=== PATIENT | male | born 1995 | race African-American/Black ===

== ENCOUNTER 2018-12-14 10:03 | Emergency (ER) | payer OTHER ==
[2018-12-14 10:36] VITALS: BP 165/102
--- NOTE | 2018-12-14 10:49 | ER Document Report ---
HPI - HPI Patient complains to provider of: Muscle pain Time Seen by Provider: 12/14/18 10:44 Onset: This morning Onset/Duration: Gradual Quality of pain: Achy, Other Severity: Mild Pain Level: 1 Associated Symptoms: Body/muscle aches. denies: Chest pain, Chills, Nonproductive cough, Productive cough, Diarrhea, Drooling, Earache, Fever, Headache, Hoarseness, Hurts to breath, Nausea, Vomiting, Rhinnorhea, Sinus pain/drainage, Shortness of breath, Sore throat, Sweating Exacerbated by: Movement Relieved by: Denies Similar symptoms previously: Yes Recently seen / treated by doctor: No - ROS ROS below otherwise negative: Yes - CONSTITUTIONAL Constitutional: DENIES: Fever, Chills - EENT EENT: DENIES: Sore Throat, Ear Pain, Nasal Drainage-Clear, Nasal Drainage- Purulent, Congestion, Eye problems - NEURO Neurology: DENIES: Headache, Weakness, Vision blurred, Dizzinesss / Vertigo - CARDIOVASCULAR Cardiovascular: DENIES: Chest pain - RESPIRATORY Respiratory: DENIES: Trouble Breathing, Coughing - GASTROINTESTINAL Gastrointestinal: DENIES: Abdominal Pain, Nausea, Patient vomiting, Diarrhea, Constipation, Black / Bloody Stools - URINARY Urinary: DENIES: Dysuria, Urgency, Frequency - REPRODUCTIVE Reproductive: DENIES: :, Postmenopausal, Abnormal bleeding / discharge - MUSCULOSKELETAL Musculoskeletal: DENIES: Extremity pain - Body aches muscle pain, Back Pain - Body aches muscle pain, Neck Pain, Swelling - DERM Skin Color: Normal Skin Problems: None Past Medical History - General Information source: Patient - Social History Smoking Status: Current Every Day Smoker Cigarette use (# per day): Yes - Half pack a day Chew tobacco use (# tins/day): No - 4 minutes Smoking Education Provided: Yes Frequency of alcohol use: Social Drug Abuse: None 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 Family History: Reviewed & Not Pertinent Patient has suicidal ideation: No Patient has homicidal ideation: No - Past Medical History Cardiac Medical History: Reports: Hx Hypertension EENT Medical History: Reports: None Neurological Medical History: Reports: None Endocrine Medical History: Reports: None Renal/ Medical History: Reports: None Malignancy Medical History: Reports None GI Medical History: Reports: None Musculoskeletal Medical History: Reports None Skin Medical History: Reports None Psychiatric Medical History: Reports: None Traumatic Medical History: Reports: None Infectious Medical History: Reports: None Surgical Hx: Negative Past Surgical History: Reports: None - Immunizations Immunizations up to date: Yes Hx Diphtheria, Pertussis, Tetanus Vaccination: Yes Vertical Provider Document - CONSTITUTIONAL Agree With Documented VS: Yes Exam Limitations: No Limitations General Appearance: WD/WN, No Apparent Distress - INFECTION CONTROL TRAVEL OUTSIDE OF THE [place] IN LAST 30 DAYS: No - HEENT HEENT: Atraumatic, Normal ENT Exam, Normocephalic, PERRLA - NECK Neck: Normal Inspection, Supple - RESPIRATORY Respiratory: Breath Sounds Normal, No Respiratory Distress, Chest Non-Tender - CARDIOVASCULAR Cardiovascular: Regular Rate, Regular Rhythm, No Murmur Notes: High blood pressure patient was instructed to follow-up with the BAS for his blood pressure - GI/ABDOMEN Gastrointestinal: Abdomen Soft, Abdomen Non-Tender, Abdomen Tender - BACK Back: Normal Inspection Notes: No tenderness to palpation or to movement - MUSCULOSKELETAL/EXTREMETIES Musculoskeletal/Extremeties: MAEW, FROM, Non-Tender - NEURO Level of Consciousness: Awake, Alert, Appropriate Motor/Sensory: No Motor Deficit, No Sensory Deficit, No Pronator Drift Deep Tendon Reflexes: 2+ - DERM Integumentary: Warm, Dry, No Rash Course - Re-evaluation Re-evalutation: 12/14/18 10:52 Patient states he was having body aches muscle spasms no tenderness to palpation to his arms legs back abdomen lungs clear to auscultation states he was not really having any symptoms at this time denied any dizziness nausea vomiting headache or any pain at this time. States that the pain returns he will follow- up with his BAS. - Vital Signs Vital signs: Temp Pulse Resp BP Pulse Ox 97.7 F 94 20 165/102 H 94 12/14/18 10:34 12/14/18 10:34 12/14/18 10:34 12/14/18 10:34 12/14/18 10:34 Discharge - Discharge Clinical Impression: Muscle cramps, Generalized body aches Condition: Stable Disposition: HOME, SELF-CARE Additional Instructions: You complaint of muscle aches body aches muscle spasms but you deny any nausea vomiting shortness of breath dizziness lightheadedness or headache at this time. He states she just drove 10 hours and you were concerned because of the body aches and joint pain. You state when he first got here you were having some pain in your back but that is not there now. 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 Myalagia (Muscle Pain) Myalgia is pain in the muscles. We use the word myalgia to describe muscle pain where there's no history of injury, no known muscle disease, and the muscles are normal to examination. Myalgias can be a symptom of an acute illness, such as influenza, hepatitis, or any viral illness, especially with fever. Sometimes the muscle pain comes before any other symptoms. Myalgia can also be an early symptom of inflammatory muscle disease, such as lupus. If myalgia is accompanied by an acute illness that explains the muscle pain, then no further testing needs to be done. When there's no clear reason for the pain, tests may be done to see if there's an inflammatory or other disease of the muscles. The usual treatment for myalgias is anti-inflammatory medication, such as ibuprofen. Muscle aches may be soothed with a heating pad or hot compress. If muscles remain painful for more than a few days, you'll need testing and followup. Return if a muscle becomes swollen, red, or severely painful. Acetaminophen Acetaminophen may be taken for pain relief or fever control. It's much safer than aspirin, offering a wider range of "safe" dosages. It is safe during . Some brand names are Tylenol, Panadol, Datril, Anacin 3, Tempra, and Liquiprin. Acetaminophen can be repeated every four hours. The following are maximum recommended dosages: WEIGHT Dose Drops Elixir Chewable(80mg) (LBS.) drprs=droppers tsp=teaspoon 6 40 mg .4 ml (1/2) 6-11 80 mg .8 ml (full) 1/2 tsp 1 tab 12-16 120 mg 1 1/2 drprs 3/4 tsp 1 1/2 tabs 17-23 160 mg 2 drprs 1 tsp 2 tabs 24-30 240 mg 3 drprs 1 1/2 tsp 3 tabs 30-35 320 mg 2 tsp 4 tabs 36-41 360 mg 2 1/4 tsp 4 1/2 tabs 42-47 400 mg 2 1/2 tsp 5 tabs 48-53 480 mg 3 tsp 6 tabs 54-59 520 mg 3 1/4 tsp 6 1/2 tabs 60-64 560 mg 3 1/2 tsp 7 tabs 65-70 600 mg 3 3/4 tsp 7 1/2 tabs 71-76 640 mg 4 tsp 8 tabs 77-82 720 mg 4 1/2 tsp 9 tabs 83-88 800 mg 5 tsp 10 tabs >89 pounds or adults 650 mg to 900 mg Acetaminophen can be repeated every four hours. Maximum daily dose not to exceed 4000 mg. These maximum recommended dosages are slightly higher than the dosages written on the product container, but these dosages are very safe and well below the toxic dosage for acetaminophen. Ibuprofen Ibuprofen is an excellent, safe drug for pain control. In addition, it has potent antiinflammatory effects which are beneficial, especially in the treatment of injuries, arthritis, or tendonitis. It's best to take ibuprofen with food. Persons with ulcer disease or allergy to aspirin should notify their physician of this before taking ibuprofen. Take the medication exactly as prescribed. Don't take additional doses unless instructed to do so by your doctor. If you develop wheezing, shortness of breath, hives, faintness, stomach pain, vomiting, or dark black stools, return for re-evaluation at once. Warm Packs After approximately two days, apply gentle heat (such as a heating pad or hot water bottle) for about 20 to 30 minutes about every two hours -- at least four times daily. Warmth and elevation will help you make a more rapid recovery, and will ease the pain considerably. Do not use HOT heat, and never apply heat for longer than 30 minutes. The continuous heat can invisibly damage skin and muscles -- even when no burn is seen on the surface. Damaged muscles can make you MORE sore. Ice Packs Apply ice packs frequently against the painful area. Many different schedules are recommended, such as "20 minutes on, 20 minutes off" or "one hour ice, two hours rest." If you need to work, you may need to go longer between ice treatments. You should plan to have the area ice packed AT LEAST one fourth of the time. The ice should be applied over the wrap, tape, or splint, or over a layer of cloth -- not directly against the skin. Some ice bags have a built-in cloth and can be put directly on the skin. FOLLOW-UP CARE: If you have been referred to a physician for follow-up care, call the physicians office for an appointment as you were instructed or within the next two days. If you experience worsening or a significant change in your symptoms, notify the physician immediately or return to the Emergency Department at any time for re-evaluation. Forms: Elevated Blood Pressure, Smoking Cessation Education
== END 2018-12-14 10:50 | disposition home or self-care (01) ==
LOC: ER 10:03
DX: M62.838 Other muscle spasm (principal); M54.2 Cervicalgia; F17.210 Nicotine dependence, cigarettes, uncomplicated; I10 Essential (primary) hypertension
CPT/HCPCS: 99283; 99406

== ENCOUNTER 2019-01-25 06:38 | Observation (INO) | payer OTHER ==
[2019-01-25] MEDS ORDERED: ONDANSETRON HCL INJ/PF 4 MG/2 ML SDV IV ONE ×2 (08:00→11:31)
[2019-01-25] MEDS ORDERED: NORMAL SALINE 1000 ML 1,000 ML IV ONE (08:00)
[2019-01-25] MEDS ORDERED: CLINDAMYCIN 600 MG/D5W RTU 600 MG/50 ML RTUPB IV ONE (08:00)
[2019-01-25] MEDS ORDERED: MORPHINE SULFATE 10 MG/ML INJ IV ONE ×5 (08:00→17:06)
--- NOTE | 2019-01-25 08:09 | ER Document Report ---
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 He reports that Friday 8 days ago, he either got a small cut or splinter in the volar base of the thumb. It started to become a little swollen and later in the week, he saw his BAS manufacturing plant controller on or Friday and was told to elevate the hand over the weekend. They were going back and forth over whether or not there was an infection, he was not put on any medication. He woke up this morning with the base of the thumb and the thenar eminence of the palm grossly swollen, red, exquisitely painful. He states pain is going up the arm. He has tenderness in the axilla. TRAVEL OUTSIDE OF THE [place] IN LAST 30 DAYS: No - Related Data Allergies/Adverse Reactions: amoxicillin Allergy (Verified 12/14/18 10:05) Past Medical History - General Information source: Patient - Social History Smoking Status: Current Every Day Smoker Cigarette use (# per day): Yes Chew tobacco use (# tins/day): No Smoking Education Provided: No Frequency of alcohol use: Occasional Drug Abuse: None Occupation: [employer] Lives with: Other - [employer] Family History: Reviewed & Not Pertinent Patient has suicidal ideation: No Patient has homicidal ideation: No - Past Medical History Cardiac Medical History: Reports: Hx Hypertension Surgical Hx: Negative - Immunizations Immunizations up to date: Yes Hx Diphtheria, Pertussis, Tetanus Vaccination: Yes Review of Systems - Review of Systems Constitutional: No symptoms reported EENT: No symptoms reported Cardiovascular: No symptoms reported Respiratory: No symptoms reported Gastrointestinal: No symptoms reported Musculoskeletal: See HPI Skin: No symptoms reported Hematologic/Lymphatic: No symptoms reported Neurological/Psychological: No symptoms reported Physical Exam - Vital signs Vitals: Temp Pulse Resp BP Pulse Ox 98.2 F 105 H 16 133/79 H 97 01/25/19 06:44 01/25/19 06:44 01/25/19 06:44 01/25/19 06:44 01/25/19 06:44 Interpretation: Normal - General General appearance: Appears well, Alert In distress: Mild - HEENT Head: Normocephalic, Atraumatic Eyes: Normal Pupils: PERRL - Respiratory Respiratory status: No respiratory distress Breath sounds: Normal - Cardiovascular Rhythm: Regular - Abdominal Inspection: Normal - Back Back: Normal - Extremities General upper extremity: Other - Left palmar base of the thumb has a transverse laceration with bulging purulent appearing wound. Surrounding area is grossly swollen erythemic and tender. The swelling, and erythema extends well into the thenar aspect of the palm. There is some tenderness following lymphatics up the arm, there are no epitrochlear nodes. There is tenderness to palpate in the axilla, although no lymph nodes were palpated. General lower extremity: Normal inspection - Neurological Neuro grossly intact: Yes - Psychological Associated symptoms: Normal affect, Normal mood Course - Re-evaluation Re-evalutation: 01/25/19 13:27 PROCEDURE: The left palm was prepped with Shur-Clens. The base of the thumb was injected with 5 mL 1% lidocaine and a digital block pattern. The blister area over the base of the thumb was cut away. Pus within the blistered area was cultured. After the blistered skin was removed exposing viable dermis, a small opening with white pus was located. This opening was stretched with a mosquito clamp, and gentle pressure was put on the thenar eminence. A large amount of pus came out through that opening. The opening was then explored with the mosquito clamp and it traveled proximal and medially about 2 cm into the thenar region. This did allow additional pus to come out of the wound. 1/4 inch piece of iodoform gauze was placed down through the opening extending into the thenar eminence and the wound was bandaged in a sterile fashion. - Vital Signs Vital signs: Temp Pulse Resp BP Pulse Ox 98.2 F 105 H 16 133/79 H 97 01/25/19 06:44 01/25/19 06:44 01/25/19 06:44 01/25/19 06:44 01/25/19 06:44 - Laboratory Result Diagrams: 01/25/19 08:35 01/25/19 08:35 Laboratory results interpreted by me: 01/25/19 01/25/19 08:16 08:35 WBC 12.9 H Absolute Neutrophils 9.8 H Urine Ketones TRACE H - Diagnostic Test Radiology reviewed: Reports reviewed - MRI of the hand shows cellulitis extending from the base of the thumb into the thenar region without fluid collection. - Consults Dr. Valverde Time consulted: 11:45 Consulted provider: will see as inpatient Discharge - Discharge Clinical Impression: Abscess of palm Condition: Stable Disposition: ADMITTED INPATIENT Admitting Provider: Dr. Valverde Unit Admitted: Surgical Floor
[2019-01-25 08:31] LABS: APPEARANCE,URINE CLEAR; BILIRUBIN,URINE NEGATIVE (NEGATIVE); COLOR,URINE YELLOW; GLUCOSE, URINE NEGATIVE (NEGATIVE); KETONES,URINE TRACE mg/dL (NEGATIVE); LEUKOCYTE ESTERASE,URINE NEGATIVE (NEGATIVE); NITRITE,URINE NEGATIVE (NEGATIVE); PROTEIN,URINE NEGATIVE (NEGATIVE); URINE SPECIFIC GRAVITY 1.018; UROBILINOGEN,URINE NEGATIVE mg/dL (<2.0)
[2019-01-25 09:02] LABS: ABSOLUTE EOSINOPHILS # (AUTO) 0.1 10^3/uL (0.0-0.6); ABSOLUTE LYMPHOCYTES (AUTO) 2.1 10^3/uL (0.5-4.7); ABSOLUTE MONOCYTES (AUTO) 0.8 10^3/uL (0.1-1.4); ABSOLUTE NEUT (AUTO) 9.8 10^3/uL (1.7-8.2); BASOPHILS % (AUTO) 0.4 % (0-2); EOSINOPHILS % (AUTO) 0.6 % (0-6); HEMATOCRIT 46.8 % (37.9-51.0); HEMOGLOBIN 15.8 g/dL (13.5-17.0); LYMPHOCYTES % (AUTO) 16.3 % (13-45); MEAN CORPUSCULAR HEMOGLOBIN 29.3 pg (27.0-33.4); MEAN CORPUSCULAR HGB CONC 33.8 g/dL (32.0-36.0); MEAN CORPUSCULAR VOLUME 87 fl (80-97); MONOCYTES % (AUTO) 6.6 % (3-13); PLATELET COUNT 231 10^3/uL (150-450); RED BLOOD COUNT 5.39 10^6/uL (4.35-5.55); RED CELL DISTRIBUTION WIDTH 13.1 % (11.5-14.0); SEGMENTED NEUTROPHILS % (AUTO) 76.1 % (42-78); TOTAL CELLS COUNTED % (AUTO) 100 %; WHITE BLOOD COUNT 12.9 10^3/uL (4.0-10.5)
[2019-01-25 09:24] LABS: ALBUMIN 4.7 g/dL (3.5-5.0); ALKALINE PHOSPHATASE 70 U/L (38-126); ANION GAP 11 (5-19); ASPARTATE AMINO TRANSFERASE 29 U/L (17-59); BILIRUBIN,DIRECT 0.4 mg/dL (0.0-0.4); BILIRUBIN,TOTAL 0.6 mg/dL (0.2-1.3); BLOOD UREA NITROGEN 11 mg/dL (7-20); CALCIUM 9.6 mg/dL (8.4-10.2); CARBON DIOXIDE 26 mmol/L (22-30); CHLORIDE 105 mmol/L (98-107); GLUCOSE 91 mg/dL (75-110); POTASSIUM 4.5 mmol/L (3.6-5.0); TOTAL PROTEIN 7.7 g/dL (6.3-8.2)
[2019-01-25] MEDS ORDERED: KETOROLAC TROMETHAMINE INJ/PF 30 MG/1 ML SDV IV ONE (09:45)
--- NOTE | 2019-01-25 11:14 | RADIOLOGY REPORT (SQ) ---
EXAM DESCRIPTION: MRI LT UPPER EXTREMITY COMBO COMPLETED DATE/TIME: 01/25/2019 10:46 am REASON FOR STUDY: Abscess base of thumb extending in the palm COMPARISON: None. TECHNIQUE: Multiplanar imaging of the left thumb to include T1-weighted, postcontrast T1-weighted, a nd T2-weighted images. CONTRAST TYPE AND DOSE: 15 mL Dotarem. RENAL FUNCTION: Not indicated. ACR Type II contrast agent associated with few, if any, unconfounded cases of NSF LIMITATIONS: None. FINDINGS: BONE MARROW: No marrow signal alteration. Specifically no marrow replacement or marrow ed fortunato. No evidence for osteomyelitis. No cortical break through. SOFT TISSUES: Inflammatory changes thumb base extending distally. No organized fluid collection. No significant extension proximally. OTHER: No other significant finding. IMPRESSION: Cellulitis extending distally from the base of the thumb. No significant extension prox imally. TECHNICAL DOCUMENTATION: JOB ID: [id number] [employer]- All Rights Reserved Reading location - IP/workstation name: [email or web address]
[2019-01-25] MEDS ORDERED: LIDOCAINE 1% INJ-PF (10 MG/ML) 30 ML SDV INJ ONE (11:49)
[2019-01-25] MEDS: VANCOMYCIN HCL 1,500 MG in DEXTROSE 5%-WATER 250 ML IV SCH (20:15)
[2019-01-25] MEDS: OXYCODONE HCL IR 5 MG TABLET PO PRN (20:15)
[2019-01-25] MEDS: CEFTRIAXONE 2 GM/D5W RTU 2 GM/50 ML RTUPB IV SCH (21:59)
[2019-01-26] MEDS: VANCOMYCIN HCL 1,500 MG in DEXTROSE 5%-WATER 250 ML IV SCH ×3 (04:13→20:15)
[2019-01-26] MEDS: OXYCODONE HCL IR 5 MG TABLET PO PRN ×3 (04:13→21:02)
[2019-01-26] MEDS ORDERED: RINGERS SOLUTION,LACTATED 1,000 ML IV PRN ×2 (07:34→17:39)
--- NOTE | 2019-01-26 07:34 | PDOC H&P ---
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 Patient underwent an MRI scan in the emergency room demonstrating thumb abscess. The patient underwent a limited I&D by Dr. Paul Ramirez in the emergency room where he was able to express purulence from the thenar eminence. He is admitted to orthopedic service for further management of a left thenar abscess. Past Medical History Cardiac Medical History: Reports: Hypertension Past Surgical History Past Surgical History: Reports: None Social History Information Source: Patient, ON LICENSE OF [facility] Records Lives with: Other - [employer] Smoking Status: Former Smoker Frequency of Alcohol Use: Occasional Hx Recreational Drug Use: No Drugs: None Hx Prescription Drug Abuse: No - Advance Directive Resuscitation Status: Full Code Family History Family History: Reviewed & Not Pertinent Parental Family History Reviewed: No Children Family History Reviewed: No Sibling(s) Family History Reviewed.: No Medication/Allergy Home Medications: No Home Medications 01/25/19 Allergies/Adverse Reactions: amoxicillin Allergy (Unknown, Verified 01/25/19 19:22) Hives Review of Systems All systems: as per PMH Physical Exam Vital Signs: Temp Pulse Resp BP Pulse Ox 36.3 C 83 17 149/93 H 100 01/25/19 23:27 01/25/19 23:27 01/25/19 19:56 01/25/19 23:27 01/25/19 23:27 Intake & Output 01/25/19 01/26/19 01/27/19 06:59 06:59 06:59 Intake Total 1350 Output Total 1040 Balance 310 Weight 89 kg 89.8 kg Physical Exam: Patient is a relatively muscular young white male in minor distress. General appearance: PRESENT: mild distress, well-developed, well-nourished Head exam: PRESENT: normocephalic Respiratory exam: PRESENT: unlabored Cardiovascular exam: PRESENT: RRR Vascular exam: PRESENT: normal capillary refill GI/Abdominal exam: PRESENT: soft Rectal exam: PRESENT: deferred Extremities exam: PRESENT: other - Dressing is removed from the left thumb region. There is packing in the webspace along the volar and ulnar aspect of the MCP crease. There is rising lymphangitis along the volar forearm and into the antecubital fossa. His epitrochlear nodes as well as potentially axillary nodes. There is brisk capillary refill. Sensory examination is intact to light touch. Neurological exam: PRESENT: alert, awake, oriented to person, oriented to place, oriented to time, oriented to situation. ABSENT: motor sensory deficit Psychiatric exam: PRESENT: appropriate affect, normal mood. ABSENT: homicidal ideation, suicidal ideation Skin exam: PRESENT: dry, intact, warm. ABSENT: cyanosis, rash Results Laboratory Results: 01/25/19 08:35 01/25/19 08:35 01/25/19 01/25/19 01/25/19 08:16 08:35 08:35 WBC 12.9 H RBC 5.39 Hgb 15.8 Hct 46.8 MCV 87 MCH 29.3 MCHC 33.8 RDW 13.1 Plt Count 231 Seg Neutrophils % 76.1 Lymphocytes % 16.3 Monocytes % 6.6 Eosinophils % 0.6 Basophils % 0.4 Absolute Neutrophils 9.8 H Absolute Lymphocytes 2.1 Absolute Monocytes 0.8 Absolute Eosinophils 0.1 Absolute Basophils 0.0 Sodium 142.2 Potassium 4.5 Chloride 105 Carbon Dioxide 26 Anion Gap 11 BUN 11 Creatinine 0.77 Est GFR ( Amer) > 60 Est GFR (Non-Af Amer) > 60 Glucose 91 Calcium 9.6 Total Bilirubin 0.6 AST 29 Alkaline Phosphatase 70 Total Protein 7.7 Albumin 4.7 Urine Color YELLOW Urine Appearance CLEAR Urine pH 6.0 Ur Specific Knifley 1.018 Urine Protein NEGATIVE Urine Glucose (UA) NEGATIVE Urine Ketones TRACE H Urine Blood NEGATIVE Urine Nitrite NEGATIVE Ur Leukocyte Esterase NEGATIVE Urine WBC (Auto) 1 Urine RBC (Auto) 2 01/25/19 13:30 Hand - Abscess Gram Stain - Final Impressions: Upper Extremity MRI 01/25/19 08:50 IMPRESSION: Cellulitis extending distally from the base of the thumb. No significant extension proximally. Status: Imported from PACS Assessment & Plan - Diagnosis (1) Abscess of palm Is this a current diagnosis for this admission?: Yes Plan: Patient will be taken to the operating room for an I&D of the left thenar abscess. - Time Time Spent: 50 to 70 Minutes Anticipated discharge: Home Within: within 24 hours
[2019-01-26] MEDS ORDERED: DEXAMETHASONE SOD PHOSPHATE INJ 4 MG/1 ML VIAL ONE (14:43)
[2019-01-26] MEDS ORDERED: KETOROLAC TROMETHAMINE 60 MG/2 ML SDV ONE (14:43)
[2019-01-26] MEDS ORDERED: ONDANSETRON HCL INJ/PF 4 MG/2 ML SDV ONE (14:43)
[2019-01-26] MEDS ORDERED: MIDAZOLAM 2 MG/2 ML INJ ONE (16:51)
[2019-01-26] MEDS ORDERED: FENTANYL CITRATE INJ/PF 100 MCG/2 ML AMPUL ONE (16:51)
[2019-01-26] MEDS ORDERED: PROPOFOL INJ 200 MG/20 ML VIAL IV ONE (16:51)
[2019-01-26] MEDS ORDERED: BUPIVACAINE HCL 0.25 % INJ/PF (2.5 MG/1 ML) 30 ML VIAL ONE (16:54)
[2019-01-26] MEDS ORDERED: LIDOCAINE 1% INJ-PF (10 MG/ML) 30 ML SDV ONE (16:55)
[2019-01-26] MEDS ORDERED: LIDOCAINE 1% INJ-PF (10 MG/ML) 30 ML SDV INJ ONE (17:14)
[2019-01-26] MEDS ORDERED: OXYCODONE-ACETAMINOPHEN 5-325 MG TABLET PO PRN ×2 (17:20)
[2019-01-26] MEDS ORDERED: MORPHINE SULFATE 10 MG/ML INJ IV PRN (17:20)
[2019-01-26] MEDS ORDERED: PROMETHAZINE HCL INJ 25 MG/1 ML VIAL IV PRN (17:20)
[2019-01-26] MEDS ORDERED: DIPHENHYDRAMINE HCL 50 MG/ML VIAL IV PRN (17:20)
[2019-01-26] MEDS ORDERED: FENTANYL CITRATE INJ/PF 100 MCG/2 ML AMPUL IV PRN ×3 (17:20)
[2019-01-26] MEDS ORDERED: MEPERIDINE HCL/PF INJ 25 MG/1 ML DISP.SYRIN IV PRN (17:20)
--- NOTE | 2019-01-26 17:26 | Operative Report ---
Operative Report DATE OF SURGERY: 01/26/19 PREOPERATIVE DIAGNOSIS: Purulent tenosynovitis left thumb with ascending lympha ngitis OPERATION: Irrigation debridement septic tenosynovitis left thumb SURGEON: ZENON CANCHOLA ANESTHESIA: GA TISSUE REMOVED OR ALTERED: Cultures to microbiology ESTIMATED BLOOD LOSS: Minimal PROCEDURE: With the patient supine in the operating table the left upper extremities prepped and draped in sterile fashion. There is a transverse incision at the level of the flexion crease of the MCP joint of the left thumb. An arm is extended from the ulnar border this distally over the thumb flexor tendon sheath and proximally from the radial aspect to make a Z-type incision. Blunt dissection with a hemostat is performed to open up the underlying abscess cavity. Cultures are sent. The wound is debrided. Its irrigated with 1 L of normal saline containing Betadine. 1/4 inch form dressing is packed into the wound and then the wound was loosely approximated at the extensions using interrupted 3-0 nylon suture. A sterile compressive dressing was applied and the patient's return to the PACU in satisfactory condition.
[2019-01-26] MEDS ORDERED: HYDROMORPHONE HCL INJ/PF 2 MG/ML AMPULE ONE (17:48)
[2019-01-26] MEDS ORDERED: OXYCODONE-ACETAMINOPHEN 5-325 MG TABLET ONE (18:09)
[2019-01-26] MEDS: CEFTRIAXONE 2 GM/D5W RTU 2 GM/50 ML RTUPB IV SCH (22:23)
[2019-01-27] MEDS: VANCOMYCIN HCL 1,500 MG in DEXTROSE 5%-WATER 250 ML IV SCH ×2 (02:23→10:24)
[2019-01-27 05:51] LABS: ANION GAP 10 (5-19); BLOOD UREA NITROGEN 9 mg/dL (7-20); CALCIUM 9.7 mg/dL (8.4-10.2); CARBON DIOXIDE 24 mmol/L (22-30); CHLORIDE 102 mmol/L (98-107); GLUCOSE 136 mg/dL (75-110); POTASSIUM 4.5 mmol/L (3.6-5.0)
[2019-01-27 05:54] LABS: ABSOLUTE MONOCYTES (AUTO) 0.4 10^3/uL (0.1-1.4); ABSOLUTE NEUT (AUTO) 6.7 10^3/uL (1.7-8.2); BASOPHILS % (AUTO) 0.3 % (0-2); EOSINOPHILS % (AUTO) 0.2 % (0-6); HEMATOCRIT 43.8 % (37.9-51.0); HEMOGLOBIN 15.2 g/dL (13.5-17.0); LYMPHOCYTES % (AUTO) 12.1 % (13-45); MEAN CORPUSCULAR HEMOGLOBIN 29.2 pg (27.0-33.4); MEAN CORPUSCULAR HGB CONC 34.7 g/dL (32.0-36.0); MEAN CORPUSCULAR VOLUME 84 fl (80-97); MONOCYTES % (AUTO) 5.1 % (3-13); PLATELET COUNT 245 10^3/uL (150-450); RED BLOOD COUNT 5.19 10^6/uL (4.35-5.55); RED CELL DISTRIBUTION WIDTH 12.4 % (11.5-14.0); SEGMENTED NEUTROPHILS % (AUTO) 82.3 % (42-78); TOTAL CELLS COUNTED % (AUTO) 100 %; WHITE BLOOD COUNT 8.1 10^3/uL (4.0-10.5)
--- NOTE | 2019-01-27 07:26 | PDOC PROGRESS REPORT ---
Subjective Progress Note for:: 01/27/19 Reason For Visit: LEFT THENAR ABSCESS 23-year-old white male now postop day 1 status post I&D of a left thenar abscess and cultures are growing gram-positive cocci in clusters. Physical Exam Vital Signs: Temp Pulse Resp BP Pulse Ox 36.3 C 117 H 18 196/85 H 100 01/27/19 01:11 01/27/19 01:11 01/27/19 01:11 01/27/19 01:11 01/27/19 01:11 Intake & Output 01/26/19 01/27/19 01/28/19 06:59 06:59 06:59 Intake Total 1350 4562 Output Total 1040 0 Balance 310 4562 Weight 89.8 kg 89.5 kg Physical Exam: Muscular young white male in minimal distress. General appearance: PRESENT: no acute distress Head exam: PRESENT: normocephalic Respiratory exam: PRESENT: unlabored Cardiovascular exam: PRESENT: RRR GI/Abdominal exam: PRESENT: soft Rectal exam: PRESENT: deferred Extremities exam: PRESENT: other - Hand and a dressing which is clean dry and intact. Ascending lymphangitis seems to have resolved. Neurological exam: PRESENT: alert, awake, oriented to person, oriented to place, oriented to time, oriented to situation. ABSENT: motor sensory deficit Psychiatric exam: PRESENT: appropriate affect, normal mood. ABSENT: homicidal ideation, suicidal ideation Skin exam: PRESENT: dry, intact, warm. ABSENT: cyanosis, rash Results Laboratory Results: 01/27/19 04:17 01/27/19 04:17 01/27/19 01/27/19 04:17 04:17 WBC 8.1 RBC 5.19 Hgb 15.2 Hct 43.8 MCV 84 MCH 29.2 MCHC 34.7 RDW 12.4 Plt Count 245 Seg Neutrophils % 82.3 H Lymphocytes % 12.1 L Monocytes % 5.1 Eosinophils % 0.2 Basophils % 0.3 Absolute Neutrophils 6.7 Absolute Lymphocytes 1.0 Absolute Monocytes 0.4 Absolute Eosinophils 0.0 Absolute Basophils 0.0 Sodium 135.9 L Potassium 4.5 Chloride 102 Carbon Dioxide 24 Anion Gap 10 BUN 9 Creatinine 0.74 Est GFR ( Amer) > 60 Est GFR (Non-Af Amer) > 60 Glucose 136 H Calcium 9.7 01/25/19 13:30 Hand - Abscess Gram Stain - Final Impressions: Upper Extremity MRI 01/25/19 08:50 IMPRESSION: Cellulitis extending distally from the base of the thumb. No significant extension proximally. Status: Imported from PACS Assessment & Plan - Diagnosis (1) Abscess of palm Is this a current diagnosis for this admission?: Yes Plan: Awaiting culture and sensitivity results. Clinically there appears to be improvement. Will tailor antibiotics once further microbiologic data is available. - Time Time Spent with patient: 15-24 minutes Anticipated discharge: Home Within: within 24 hours
[2019-01-27 10:17] LABS: VANCOMYCIN,TROUGH 13.3 ug/mL (5.0-20.0)
[2019-01-27] MEDS: OXYCODONE HCL IR 5 MG TABLET PO PRN ×3 (10:44→22:59)
[2019-01-27] MEDS ORDERED: KETOROLAC TROMETHAMINE INJ/PF 30 MG/1 ML SDV ONE (18:30)
[2019-01-27] MEDS: VANCOMYCIN HCL 1,250 MG in DEXTROSE 5%-WATER 250 ML IV SCH ×2 (18:33→23:11)
[2019-01-27] MEDS: CEFTRIAXONE 2 GM/D5W RTU 2 GM/50 ML RTUPB IV SCH (22:59)
[2019-01-27] MEDS: KETOROLAC TROMETHAMINE INJ/PF 30 MG/1 ML SDV IV PRN (23:03)
[2019-01-28] MEDS: OXYCODONE HCL IR 5 MG TABLET PO PRN (06:28)
[2019-01-28] MEDS: VANCOMYCIN HCL 1,250 MG in DEXTROSE 5%-WATER 250 ML IV SCH ×2 (06:29→13:07)
--- NOTE | 2019-01-28 06:38 | PDOC DISCHARGE SUMMARY ---
General - Admit/Disc Date/PCP Admission Date/Primary Care Provider: 01/25/19 13:47 Discharge Date: 01/28/19 - Discharge Diagnosis (1) Abscess of palm Is this a current diagnosis for this admission?: Yes Summary: 23-year-old white male presents with nondominant left hand pain, erythema the thenar space, and ascending lymphangitis in the emergency room. Is admitted to the orthopedic service for management. - Additional Information Resuscitation Status: Full Code Discharge Diet: As Tolerated, Regular Discharge Activity: Balance Activity w/Rest, No tub bath Prescriptions: Oxycodone HCl [Oxy-Ir 5 mg Tablet] 5 mg PO Q6HP PRN #40 tablet PRN Reason: Rifampin [Rifadin 300 mg Capsule] 300 mg PO BID #20 capsule Sulfamethoxazole/Trimethoprim [Septra-Ds 800-160 mg Tablet] 1 tab PO BID #20 tablet Home Medications: Oxycodone HCl [Oxy-Ir 5 mg Tablet] 5 mg PO Q6HP PRN #40 tablet 01/28/19 Rifampin [Rifadin 300 mg Capsule] 300 mg PO BID #20 capsule 01/28/19 Sulfamethoxazole/Trimethoprim [Septra-Ds 800-160 mg Tablet] 1 tab PO BID #20 ta blet 01/28/19 History of Present Illness History of Present Illness: 23-year-old [employer] presents with left hand pain, swelling in the thenar compartment and ascending lymphangitis Hospital Course Hospital Course: Since initially undergoes an I&D in the emergency room by Dr. Paul Ramirez. Dr. Paul Ramirez feels that the abscess extends not only in the superficial thumb but it into the thenar compartment. He is subsequent admitted to the orthopedic service for formal I&D. Is taken to the operating room the following day and undergoes an I&D of the thumb. The ascending lymphangitis resolved. Cultures come back consistent with MRSA. Antibiotics are changed from vancomycin and Rocephin to Septra with rifampin. Physical Exam Vital Signs: Temp Pulse Resp BP Pulse Ox 36.5 C 63 19 153/91 H 100 01/28/19 00:00 01/28/19 00:00 01/28/19 00:00 01/28/19 00:00 01/28/19 00:00 Intake & Output 01/26/19 01/27/19 01/28/19 06:59 06:59 06:59 Intake Total 1350 4562 2524 Output Total 1040 0 Balance 310 4562 2524 Weight 89.8 kg 89.5 kg Physical Exam: Muscular young white male in minor distress with a trash tongue General appearance: PRESENT: mild distress Head exam: PRESENT: normocephalic Respiratory exam: PRESENT: unlabored Cardiovascular exam: PRESENT: RRR Vascular exam: PRESENT: normal capillary refill GI/Abdominal exam: PRESENT: soft Rectal exam: PRESENT: deferred Extremities exam: PRESENT: other - Left thumb incision well approximated sutures. Packing is evident at the central portion of the wound. This is attempt to be removed but the patient is less than cooperative. Orders are left for the nursing to remove the packing may be they will be more successful than I am. Sensory and vascular examination to the tuft of the thumb are intact. Neurological exam: PRESENT: alert, awake, oriented to person, oriented to place, oriented to time, oriented to situation. ABSENT: motor sensory deficit Results Laboratory Results: 01/27/19 04:17 01/27/19 04:17 01/25/19 13:30 Hand - Abscess Gram Stain - Final 01/25/19 13:30 Hand - Abscess Wound Culture - Final Mrsa (Meth Resis Staph Aureus) Impressions: Upper Extremity MRI 01/25/19 08:50 IMPRESSION: Cellulitis extending distally from the base of the thumb. No significant extension proximally. Status: Imported from PACS Qualifiers - * PATIENT BEING DISCHARGED WITH ANY OF THE FOLLOWING DIAGNOSIS: No VTE patient discharged on overlapping Therapy?: No Reason(s) for not prescribing Overlap Therapy:: Not indicated Acute Heart Failure - Is this a Heart Failure Patient?: No Plan Discharge Plan: Patient to be discharged on oral rifampin and Septra. Follow-up with Dr. Valverde and [facility] for surgery on Friday for wound evaluation Time Spent: Less than 30 Minutes
[2019-01-28 09:42] VITALS: BP 139/74
[2019-01-28] MEDS: KETOROLAC TROMETHAMINE INJ/PF 30 MG/1 ML SDV IV PRN (10:33)
[2019-01-28] MEDS ORDERED: OXYCODONE HCL IR 5 MG TABLET PO ONE (12:00)
== END 2019-01-28 13:35 | disposition home or self-care (01) ==
LOC: ER 06:38 → EH 13:47 → UNDOADMIN 13:47 → INTOOBSV 13:47 → EH 17:21 → 5 17:21
PROVIDERS: ADMIT Orthopaedic Surgery; ATTEND Orthopaedic Surgery
PROC: 0H9GXZX Drainage of Left Hand Skin, External Approach, Diagnostic (ICD-10-PCS; principal; 2019-01-25)
PROC: 0LB80ZZ Excision of Left Hand Tendon, Open Approach (ICD-10-PCS; 2019-01-26)
DX: L02.512 Cutaneous abscess of left hand (principal); B95.62 Methicillin resistant Staphylococcus aureus infection as the cause of diseases classified elsewhere; I89.1 Lymphangitis; M65.842 Other synovitis and tenosynovitis, left hand; A41.9 Sepsis, unspecified organism; S61.412A Laceration without foreign body of left hand, initial encounter; W45.8XXA Other foreign body or object entering through skin, initial encounter; Z79.899 Other long term (current) drug therapy; F17.210 Nicotine dependence, cigarettes, uncomplicated
CPT/HCPCS: 26010; 99285; 36415 ×2; 87040; 87070 ×2; 87205; 85025 ×2; 87075; 87077 ×2; 80048; 80053; 81001; 87186 ×2; 80202; 73220; 01810; 11043; G0378 ×5; A9576; J2250; J1100; J1885 ×4; J3010; J3490 ×2; J2270; J1170; J2405 ×2; J7060 ×4; J7030; J7120; J2704; J3370 ×4; J0696 ×3